=== PATIENT | male | born 1965 | race Caucasian/White ===

== ENCOUNTER → 2025-04-08 09:21 | Outpatient (CLI) | payer MEDICARE, MEDICAID, SELFPAY ==
[2025-04-08 10:07] LABS: Add Manual Diff / Slide Review NO; Hematocrit 45.3 % (41-53); Hemoglobin 15.5 g/dL (13.5-17.5); Lymphocytes Absolute Auto 2000 /uL (1100-4500); Mean Corpuscular HGB Conc 34.1 % (30-36); Mean Corpuscular Hemoglobin 31.0 PG (26-34); Mean Corpuscular Volume 90.9 fL (80-100); Platelet Count 238 X10^3/uL (150-400)
== END ==
PROVIDERS: Family Provider Orthopaedic Surgery; PCP Internal Medicine; Referring Provider Internal Medicine; Visit Provider Internal Medicine Critical Care Medicine
DX: J44.1 Chronic obstructive pulmonary disease with (acute) exacerbation (principal)
CPT/HCPCS: 36415; 85025